=== PATIENT | female | born 1980 | race Caucasian/White ===

== ENCOUNTER 2018-11-26 21:16 | Emergency (ER) | payer BC, MEDICAID ==
[~2018-11-26] VITALS: Ht 144.8 cm; Wt 43.0 kg
[2018-11-27] MEDS ORDERED: KETOROLAC 30MG/ML VIAL IM ONE
[2018-11-27 01:49] VITALS: BP 115/69
== END 2018-11-27 02:11 | disposition home or self-care (01) ==
LOC: ER 21:16
DX: S93.402A Sprain of unspecified ligament of left ankle, initial encounter (principal); R20.0 Anesthesia of skin; W18.39XA Other fall on same level, initial encounter; Y93.89 Activity, other specified; Y92.89 Other specified places as the place of occurrence of the external cause; Y99.8 Other external cause status
CPT/HCPCS: 73610; 81025; 96372; 99283; J1885; Z7610

== ENCOUNTER 2018-12-01 16:40 | Emergency (ER) | payer BC, MEDICAID ==
[~2018-12-01] VITALS: Ht 167.6 cm; Wt 55.0 kg
[2018-12-01 16:58] VITALS: BP 122/72
== END 2018-12-01 17:56 | disposition home or self-care (01) ==
LOC: ER 16:40
DX: S93.492A Sprain of other ligament of left ankle, initial encounter (principal); X58.XXXA Exposure to other specified factors, initial encounter; Y93.89 Activity, other specified; Y92.89 Other specified places as the place of occurrence of the external cause
CPT/HCPCS: 99281